=== PATIENT | female | born 1960 | race Caucasian/White ===

== ENCOUNTER → 2024-01-20 08:24 | Outpatient (REF) | payer BC, SELFPAY ==
[2024-01-20 09:50] LABS: % Basophils 1.1 % (0-2); % Eosinophils 3.1 % (0-6); % Immature Granulocytes 0.2 % (0-0.5); % Lymphocytes 37.3 % (20.5-51.1); % Monocytes 7.5 % (1.7-9.3); % Neutrophils 50.8 % (42.2-75.2); Absolute Basophils 0.1 10^3/uL (0-0.2); Absolute Eosinophils 0.1 10^3/uL (0-0.7); Absolute Lymphocytes 1.7 10^3/uL (1.2-3.4); Absolute Monocytes 0.3 10^3/uL (0.1-0.6); Absolute Neutrophils 2.3 10^3/uL (1.4-6.5); Hematocrit 39.4 % (37.0-47.0); Hemoglobin 13.4 g/dL (12.0-16.0); Mean Corpuscular Hgb 30.3 pg (27.0-31.0); Mean Corpuscular Volume 89.1 fL (81.0-99.0); Mean Platelet Volume 9.5 fL (7.4-10.4); Nucleated Red Blood Cells % 0 %; Platelet Count 220 10^3/uL (130-400); Red Blood Cell Count 4.42 10^6/uL (4.20-5.40); Red Cell Dist. Width 12.2 % (11.5-14.5); White Blood Cell Count 4.5 10^3/uL (4.8-10.8)
[2024-01-20 10:00] LABS: Urine Albumin Negative (Neg - Trace); Urine Bilirubin Negative (Negative); Urine Character Clear (Clear); Urine Color Yellow; Urine Glucose Negative (Negative); Urine Ketone Negative (Negative); Urine Leukocyte 2+ (Negative); Urine Nitrite Negative (Negative); Urine Occult Blood Negative (Negative); Urine Urobilinogen Negative (Neg - 1+)
[2024-01-20 10:13] LABS: ALT (SGPT) 30 U/L (0-35); AST (SGOT) 36 U/L (14-36); Albumin 4.3 g/dl (3.5-5.0); Alkaline Phosphatase 94 U/L (38-126); Blood Urea Nitrogen 18 mg/dl (7-17); C-Reactive Protein < 5.00 mg/L (0.0-10.00); Calcium 9.6 mg/dl (8.4-10.2); Carbon Dioxide 32 mmol/L (22-30); Chloride 103 mmol/L (98-107); Glucose 92 mg/dl (70-99); Potassium 4.5 mmol/L (3.5-5.1); Sodium 137 mmol/L (135-145); Total Bilirubin 0.5 mg/dl (0.2-1.3); Total Protein 7.1 g/dl (6.3-8.2); eGFR > 60.00
[2024-01-20 10:38] LABS: Erythrocyte Sed Rate 25 mm/hour (0-20)
[2024-01-20 10:43] LABS: TSH Reflex To Free T4 2.11 uIU/ml (0.47-4.68)
[2024-01-20 10:50] LABS: Urine Squamous Cell >30 /LPF (Few); Urine Urothelial Cell >30 /LPF (FEW)
[2024-01-20 10:52] LABS: Urine Amorphous Seen; Urine Bacteria Few (Negative); Urine Red Blood Cell 0-2 /HPF (0-2)
[2024-01-22 12:58] LABS: Lyme Antibody Screen, EIA Negative (Negative)
== END ==
LOC: REG 08:24
PROVIDERS: ATTENDING PHYSICIAN Student in an Organized Health Care Education/Training Program
DX: M54.6 Pain in thoracic spine (principal); M54.50 Low back pain, unspecified; R35.0 Frequency of micturition; R53.83 Other fatigue
CPT/HCPCS: 36415; 71046; 72072; 72110; 80053; 81003; 81015; 84443; 85025; 85652; 86140; 86618; 87086

== ENCOUNTER → 2024-02-05 09:39 | Outpatient (REF) | payer BC, SELFPAY ==
[2024-02-05 10:17] LABS: % Basophils 0.9 % (0-2); % Eosinophils 2.3 % (0-6); % Immature Granulocytes 0.4 % (0-0.5); % Monocytes 8.2 % (1.7-9.3); % Neutrophils 52.2 % (42.2-75.2); Absolute Basophils 0.1 10^3/uL (0-0.2); Absolute Eosinophils 0.1 10^3/uL (0-0.7); Absolute Monocytes 0.5 10^3/uL (0.1-0.6); Absolute Neutrophils 2.9 10^3/uL (1.4-6.5); Hematocrit 39.7 % (37.0-47.0); Hemoglobin 13.6 g/dL (12.0-16.0); Mean Corp Hgb Conc. 34.3 g/dL (33.0-37.0); Mean Corpuscular Hgb 30.4 pg (27.0-31.0); Mean Corpuscular Volume 88.6 fL (81.0-99.0); Mean Platelet Volume 9.4 fL (7.4-10.4); Nucleated Red Blood Cells % 0 %; Platelet Count 212 10^3/uL (130-400); Red Blood Cell Count 4.48 10^6/uL (4.20-5.40); Red Cell Dist. Width 11.9 % (11.5-14.5); White Blood Cell Count 5.6 10^3/uL (4.8-10.8)
[2024-02-05 10:18] LABS: Urine Albumin Negative (Neg - Trace); Urine Bilirubin Negative (Negative); Urine Character Clear (Clear); Urine Color Yellow; Urine Glucose Negative (Negative); Urine Ketone Negative (Negative); Urine Leukocyte Trace (Negative); Urine Nitrite Negative (Negative); Urine Occult Blood Negative (Negative); Urine Specific Gravity 1.015 (<1.030); Urine Urobilinogen Negative (Neg - 1+)
[2024-02-05 10:33] LABS: Erythrocyte Sed Rate 24 mm/hour (0-20)
[2024-02-05 11:09] LABS: Urine Amorphous Seen
[2024-02-05 11:12] LABS: Urine Red Blood Cell 0-2 /HPF (0-2)
== END ==
LOC: REG 09:39
PROVIDERS: ATTENDING PHYSICIAN Student in an Organized Health Care Education/Training Program
DX: R39.9 Unspecified symptoms and signs involving the genitourinary system (principal); R53.83 Other fatigue; M79.671 Pain in right foot; R79.89 Other specified abnormal findings of blood chemistry
CPT/HCPCS: 36415; 81003; 81015; 85025; 85652

== ENCOUNTER → 2024-02-14 16:58 | Outpatient (REF) | payer BC, SELFPAY | LOC: RCS 16:58 | PROVIDERS: ATTENDING PHYSICIAN Emergency Medicine | DX: R53.83 Other fatigue (principal); R06.09 Other forms of dyspnea | CPT/HCPCS: 93306 ==

== ENCOUNTER → 2024-02-17 09:06 | Outpatient (REF) | payer BC, SELFPAY ==
[2024-02-17 10:35] LABS: Urine Albumin Negative (Neg - Trace); Urine Bilirubin Negative (Negative); Urine Character Clear (Clear); Urine Color Yellow; Urine Glucose Negative (Negative); Urine Ketone Negative (Negative); Urine Leukocyte 1+ (Negative); Urine Nitrite Negative (Negative); Urine Occult Blood Negative (Negative); Urine Urobilinogen Negative (Neg - 1+)
[2024-02-17 10:42] LABS: Blood Urea Nitrogen 23 mg/dl (7-17); Calcium 9.7 mg/dl (8.4-10.2); Carbon Dioxide 27 mmol/L (22-30); Chloride 103 mmol/L (98-107); Glucose 102 mg/dl (70-99); Sodium 139 mmol/L (135-145); eGFR > 60.00
[2024-02-17 11:03] LABS: Vitamin D, 25-OH*** 35.4 ng/mL (30-80)
[2024-02-17 11:36] LABS: Vitamin B12 570 pg/ml (239-931)
[2024-02-17 12:00] LABS: Urine Bacteria Few (Negative); Urine Red Blood Cell None Seen /HPF (0-2)
[2024-02-17 14:13] LABS: Glycohemoglobin (HgbA1c) 5.7 % (4.0-5.6)
== END ==
LOC: REG 09:06
PROVIDERS: ATTENDING PHYSICIAN Student in an Organized Health Care Education/Training Program; FAMILY PHYSICIAN Emergency Medicine
DX: R53.83 Other fatigue (principal); R06.09 Other forms of dyspnea; R39.9 Unspecified symptoms and signs involving the genitourinary system
CPT/HCPCS: 36415; 80048; 81003; 81015; 82306; 82607; 83036; 87086

== ENCOUNTER → 2024-04-10 07:22 | Outpatient (REF) | payer BC, SELFPAY | LOC: RCS 07:22 | PROVIDERS: ATTENDING PHYSICIAN Internal Medicine Cardiovascular Disease; FAMILY PHYSICIAN Emergency Medicine | DX: R07.89 Other chest pain (principal) | CPT/HCPCS: 78452; 93017; A9500 ==

== ENCOUNTER → 2024-07-13 09:56 | Outpatient (REF) | payer BC, SELFPAY ==
[2024-07-13 10:55] LABS: Urine Albumin Negative (Neg - Trace); Urine Bilirubin Negative (Negative); Urine Character Clear (Clear); Urine Color Yellow; Urine Glucose Negative (Negative); Urine Ketone Negative (Negative); Urine Leukocyte 1+ (Negative); Urine Nitrite Negative (Negative); Urine Occult Blood Negative (Negative); Urine Specific Gravity 1.015 (<1.030); Urine Urobilinogen Negative (Neg - 1+)
[2024-07-13 11:33] LABS: Urine Red Blood Cell None Seen /HPF (0-2)
[2024-07-13 12:08] LABS: % Basophils 0.6 % (0-2); % Eosinophils 2.1 % (0-6); % Immature Granulocytes 0.2 % (0-0.5); % Lymphocytes 40.6 % (20.5-51.1); % Monocytes 7.1 % (1.7-9.3); % Neutrophils 49.4 % (42.2-75.2); Absolute Eosinophils 0.1 10^3/uL (0-0.7); Absolute Lymphocytes 1.9 10^3/uL (1.2-3.4); Absolute Monocytes 0.3 10^3/uL (0.1-0.6); Absolute Neutrophils 2.3 10^3/uL (1.4-6.5); Hematocrit 39.4 % (37.0-47.0); Hemoglobin 13.3 g/dL (12.0-16.0); Mean Corp Hgb Conc. 33.8 g/dL (33.0-37.0); Mean Corpuscular Hgb 29.7 pg (27.0-31.0); Mean Corpuscular Volume 87.9 fL (81.0-99.0); Mean Platelet Volume 9.6 fL (7.4-10.4); Nucleated Red Blood Cells % 0 %; Platelet Count 242 10^3/uL (130-400); Red Blood Cell Count 4.48 10^6/uL (4.20-5.40); Red Cell Dist. Width 11.9 % (11.5-14.5); White Blood Cell Count 4.7 10^3/uL (4.8-10.8)
[2024-07-13 12:12] LABS: ALT (SGPT) 22 U/L (0-35); AST (SGOT) 28 U/L (14-36); Albumin 4.2 g/dl (3.5-5.0); Alkaline Phosphatase 86 U/L (38-126); Blood Urea Nitrogen 19 mg/dl (7-17); Calcium 9.6 mg/dl (8.4-10.2); Carbon Dioxide 32 mmol/L (22-30); Chloride 102 mmol/L (98-107); Glucose 91 mg/dl (70-99); HDL Cholesterol 64 mg/dl; LDL Cholesterol, Calculated 82 mg/dl; Potassium 4.6 mmol/L (3.5-5.1); Sodium 145 mmol/L (135-145); Total Bilirubin 0.2 mg/dl (0.2-1.3); Total Cholesterol 172 mg/dl (50-199); Total Protein 6.9 g/dl (6.3-8.2); Triglyceride 130 mg/dl (10-149); Very Low Density Lipoprotein 26 mg/dl (0-30); eGFR > 60.00
[2024-07-13 12:27] LABS: Vitamin D, 25-OH*** 40.2 ng/mL (30-80)
[2024-07-13 12:41] LABS: TSH Reflex To Free T4 1.91 uIU/ml (0.47-4.68)
[2024-07-13 13:13] LABS: Glycohemoglobin (HgbA1c) 5.5 % (4.0-5.6)
== END ==
LOC: REG 09:56
PROVIDERS: ATTENDING PHYSICIAN Emergency Medicine
DX: Z00.00 Encounter for general adult medical examination without abnormal findings (principal); M85.80 Other specified disorders of bone density and structure, unspecified site; I10 Essential (primary) hypertension; E66.9 Obesity, unspecified; R73.03 Prediabetes; E78.2 Mixed hyperlipidemia
CPT/HCPCS: 36415; 80053; 80061; 81003; 81015; 82306; 83036; 84443; 85025

== ENCOUNTER 2025-01-20 17:28 | Emergency (ER) | payer BC, SELFPAY ==
[2025-01-20 17:39] VITALS: BP 147/70
[2025-01-20 18:25] LABS: Hematocrit 39.1 % (37.0-47.0); Hemoglobin 13.5 g/dL (12.0-16.0); Mean Corp Hgb Conc. 34.5 g/dL (33.0-37.0); Mean Corpuscular Hgb 29.9 pg (27.0-31.0); Mean Corpuscular Volume 86.7 fL (81.0-99.0); Mean Platelet Volume 9.3 fL (7.4-10.4); Platelet Count 209 10^3/uL (130-400); Red Blood Cell Count 4.51 10^6/uL (4.20-5.40); Red Cell Dist. Width 11.9 % (11.5-14.5); White Blood Cell Count 5.6 10^3/uL (4.8-10.8)
[2025-01-20 18:26] LABS: ALT (SGPT) 31 U/L (0-35); AST (SGOT) 45 U/L (14-36); Albumin 4.4 g/dl (3.5-5.0); Alkaline Phosphatase 85 U/L (38-126); Blood Urea Nitrogen 33 mg/dl (7-17); Calcium 9.6 mg/dl (8.4-10.2); Carbon Dioxide 27 mmol/L (22-30); Chloride 98 mmol/L (98-107); Glucose 144 mg/dl (70-99); Potassium 3.6 mmol/L (3.5-5.1); Sodium 137 mmol/L (135-145); Total Bilirubin 0.9 mg/dl (0.2-1.3); Total Protein 7.1 g/dl (6.3-8.2); eGFR 41.49
[2025-01-20 19:35] LABS: Absolute Neutrophils -Man Diff 2.9 10^3/uL (1.4-6.5); Atypical Lymphocytes 7 %; Band Neutrophils 4 % (0-3); Lymphocytes 26 % (20-51); Monocytes 13 % (2-9); Segmented Neutrophils 49 % (42-75)
[2025-01-20 19:36] LABS: Normal RBC Morphology Yes; Platelets Checked Yes; Total Cells Counted 100
[2025-01-20 21:03] VITALS: BP 159/71
--- NOTE | 2025-01-20 21:09 | ED.GENMED ---
History of Present Illness
General
Chief Complaint: Abdominal Symptoms
Source: patient
Exam Limitations: none
Time Seen by Provider: 01/20/25 20:43
Nursing documentation reviewed up to this point in time: agreed with
History of Present Illness
History of Present Illness:
64-year-old female recently traveled to [facility], ate some seafood as did her family she developed fever chills abdominal cramping vomiting and then diarrhea fairly profuse, she has had decreased p.o. intake at home for a day or 2 diarrhea x 8
today, no blood in her vomit or diarrhea,
Past History
Past History
ED Past Medical History: HTN and Other (Migraine )
ED Past Surgical History: Appendectomy
Social History
Tobacco: Non-smoker
Alcohol: None
Drug: None
Personal:
Living: with family
Employment: Employed
Review of Systems
Review of Systems
All Other Systems: Not applicable
Constitutional: Reports fever, weight loss, fatigue and chills
EENT: Reports no symptoms
Respiratory: Reports no symptoms
Cardiac: Reports no symptoms
ABD/GI: Reports abdominal pain, nausea, vomiting and diarrhea
: Reports no symptoms
Musculoskeletal: Reports muscle pain and muscle stiffness
Skin: Reports no symptoms
Neurological: Reports weakness
Hematologic/Lymphatic: Reports no symptoms
Phy Exam
Physical Exam
Physical Exam:
Physical Exam
General: Nontoxic 64-year-old
Neck: Dry lips
Heart: s1/s2 regular rate and rhythm, no murmur. equal radial pulses.
Lungs: no acute respiratory distress. clear bilaterally
Abdomen: Mild diffuse tenderness no localized guarding or rebound
Neuro: alert and oriented. no focal neurological deficits
Skin: no rash
Psychiatric: well kept. interactive and cooperative
Extremities: no edema.
Course
Orders/Labs/Results
Orders:
Orders
01/20/25 17:46
Complete Blood Count/With Diff Urgent
Comprehensive Metabolic Panel Urgent
Creatine Phosphokinase Urgent
Comment: ADD ON
Manual Differential Urgent
01/20/25 20:43
STOOL [C difficile Antigen & Toxins] Urgent
SARAH Source: Feces/Stool
Specimen Description:
Stool Culture Urgent
SARAH Source: Feces/Stool
Specimen Description:
01/20/25 20:53
0.9% Sodium Chloride 1000 ml [Nss] 1,000 ml IV BOLUS
01/20/25 21:05
Norovirus by PCR Urgent
SARAH Source: Feces/Stool
Specimen Description:
Ondansetron Injectable [Zofran] 4 mg IV NOW STA
01/20/25 21:06
Acetaminophen 1000MG/100Ml [Ofirmev] 1,000 mg in 100 ml IV ONCE
Acetaminophen IV Indication:: Ileus/Delayed Bowel Func.
01/20/25 21:15
Add On- LAB Urgent
Tests Added?: CPK
01/20/25 22:21
LevoFLOXacin [Levaquin] 250 mg PO NOW STA
Abnormal Lab Results
01/20/25
17:46
Band Neutrophils 4 H %
(0-3)
Monocytes (Manual) 13 H %
(2-9)
BUN 33 H mg/dl
(7-17)
Creatinine 1.4 H mg/dL
(0.6-1.0)
Glucose 144 H mg/dl
(70-99)
AST 45 H U/L
(14-36)
Creatine Kinase 210 H U/L
(30-135)
01/20/25 17:46
01/20/25 17:46
Vital Signs
Initial and Last Documented VS:
Initial Vital Signs
Temp Pulse Resp BP Pulse Ox
97.9 F 83 16 147/70 96
01/20/25 17:39 01/20/25 17:39 01/20/25 17:39 01/20/25 17:39 01/20/25 17:39
Last Documented Vital Signs
Temp Pulse Resp BP Pulse Ox
97.9 F 87 16 159/71 97
01/20/25 17:39 01/20/25 21:03 01/20/25 17:39 01/20/25 21:03 01/20/25 21:45
MDM/Problems Addressed
Differential Diagnosis Includes:
Norovirus infectious diarrhea doubt C. difficile as she has not been on antibiotics
MDM/Problems Addressed:
Fever nausea vomiting diarrhea
Chronic conditions affecting care: HTN
*Critical Care Note
Total Time (30-74mins, 75-104mins- exclusive of procedures): Not Applicable
Update Note
Update Note:
Update after about 500 cc of saline patient feeling a bit better tells that she would like to go home as opposed to being admitted, left the full bag going has without a produce stool sample, will treat empirically for traveler's diarrhea/colitis
ED Attending Note
-
Portions of this chart may have been created with voice recognition software.� Occasional wrong word or��sound alike� substitutions may have occurred due to the inherent limitations of voice recognition software.
Discharge Plan
Departure
Patient Disposition: Home (Routine Discharge)
Date of Disposition: 01/20/25
Time of Disposition: 22:23
Patient with high blood pressure during this ER visit?: No
Condition: Good
Discharge Problem:
Acute infectious diarrhea
Instructions: Clear Liquid Diet, Nausea and Vomiting, Adult (DC), Diarrhea in adults - ED discharge instructions
Prescriptions:
New
levofloxacin 250 mg tablet
250 mg PO DAILY 3 Days Qty: 3 0RF
dicyclomine 20 mg tablet
20 mg PO QID PRN (Reason: abdominal cramps) Qty: 10 0RF
No Action
Advil
2 tab PO Q4H PRN (Reason: PAIN)
Referrals:
Romero Salas DO [Family Provider] -
Interventions
Interventions:
*Risk Screen - Suicide Last Done: 01/20/25 17:41
*General Assessment Last Done: 01/20/25 20:58
*Neglect/Abuse Screening Last Done: 01/20/25 17:41
*ED- Fall Risk Assessment Last Done: 01/20/25 20:58
*ED COVID-19 Vaccine History Last Done: 01/20/25 20:58
DF-Lrmths-Cztwvorcqe Assessment Last Done: 01/20/25 21:13
Discharge Date and Time
Print Language: HONDURAN
[2025-01-20] MEDS: NSS 1000 IV (21:26)
[2025-01-20] MEDS: OFIRMEV 100 IV (21:26)
[2025-01-20] MEDS: ZOFRAN 4 MG IV (21:27)
[2025-01-20 21:55] LABS: Creatine Phosphokinase 210 U/L (30-135)
[2025-01-20] MEDS: LEVAQUIN 250 MG PO (23:41)
[2025-01-20 23:57] VITALS: BP 130/68
== END 2025-01-21 00:17 | disposition home or self-care (01) ==
LOC: EMR 17:28
PROVIDERS: Emergency Medicine; EMERGENCY PHYSICIAN Emergency Medicine; FAMILY PHYSICIAN Family Medicine
DX: A09 Infectious gastroenteritis and colitis, unspecified (principal); I10 Essential (primary) hypertension; Z90.49 Acquired absence of other specified parts of digestive tract
CPT/HCPCS: 96374; 96361; 99284; 80053; 82550; 85025

== ENCOUNTER → 2025-04-02 07:52 | Outpatient (REF) | payer BC, SELFPAY ==
[2025-04-02 08:44] LABS: Hematocrit 37.8 % (37.0-47.0); Hemoglobin 12.8 g/dL (12.0-16.0); Mean Corp Hgb Conc. 33.9 g/dL (33.0-37.0); Mean Corpuscular Volume 89.2 fL (81.0-99.0); Nucleated Red Blood Cells % 0 %; Platelet Count 210 10^3/uL (130-400); Red Cell Dist. Width 12.4 % (11.5-14.5)
[2025-04-02 09:14] LABS: C-Reactive Protein < 5.00 mg/L (0.0-10.00)
[2025-04-02 09:16] LABS: ALT (SGPT) 19 U/L (0-35); AST (SGOT) 25 U/L (14-36); Albumin 4.3 g/dl (3.5-5.0); Alkaline Phosphatase 87 U/L (38-126); Blood Urea Nitrogen 18 mg/dl (7-17); Calcium 9.4 mg/dl (8.4-10.2); Carbon Dioxide 30 mmol/L (22-30); Chloride 105 mmol/L (98-107); Glucose 95 mg/dl (70-99); Potassium 4.2 mmol/L (3.5-5.1); Sodium 140 mmol/L (135-145); Total Protein 6.9 g/dl (6.3-8.2); eGFR > 60.00
[2025-04-03 20:13] LABS: Hepatitis C Antibody Negative (Negative)
[2025-04-04 01:24] LABS: EBV-EA (D) Ab IgG 12.0 U/mL (0.0-10.9); EBV-NA IgG 515.0 U/mL (0.0-21.9); EBV-VCA IgG Antibodies >750.0 U/mL (0.0-21.9); EBV-VCA IgM Antibodies 15.9 U/mL (0.0-43.9)
== END ==
LOC: REG 07:52
PROVIDERS: ATTENDING PHYSICIAN Nurse Practitioner Family
DX: R69 Illness, unspecified (principal)
CPT/HCPCS: 36415; 80053; 85025; 85652; 86140; 86663; 86664; 86665; 86704; 86706; 86803; 87350; 87389

== ENCOUNTER → 2025-08-22 07:12 | Outpatient (REF) | payer BC, SELFPAY ==
[2025-08-22 08:01] LABS: Hematocrit 40.9 % (37.0-47.0); Hemoglobin 13.9 g/dL (12.0-16.0); Mean Corp Hgb Conc. 34.0 g/dL (33.0-37.0); Mean Corpuscular Volume 89.5 fL (81.0-99.0); Nucleated Red Blood Cells % 0 %; Platelet Count 208 10^3/uL (130-400); Red Cell Dist. Width 11.9 % (11.5-14.5)
[2025-08-22 08:07] LABS: Urine Character Clear (Clear)
[2025-08-22 08:52] LABS: ALT (SGPT) 29 U/L (0-35); AST (SGOT) 31 U/L (14-36); Albumin 4.4 g/dl (3.5-5.0); Alkaline Phosphatase 87 U/L (38-126); Blood Urea Nitrogen 18 mg/dl (7-17); Calcium 9.7 mg/dl (8.4-10.2); Carbon Dioxide 29 mmol/L (22-30); Chloride 102 mmol/L (98-107); Glucose 100 mg/dl (70-99); HDL Cholesterol 63 mg/dl; LDL Cholesterol, Calculated 82 mg/dl; Potassium 4.0 mmol/L (3.5-5.1); Sodium 137 mmol/L (135-145); Total Protein 7.4 g/dl (6.3-8.2); Very Low Density Lipoprotein 25 mg/dl (0-30); eGFR > 60.00
[2025-08-22 08:59] LABS: Vitamin D, 25-OH*** 38.5 ng/mL (30-80)
[2025-08-22 09:13] LABS: TSH 2.33 uIU/ml (0.47-4.68)
[2025-08-22 10:02] LABS: Glycohemoglobin (HgbA1c) 5.6 % (4.0-5.9)
[2025-08-22 18:49] LABS: Microalb - Urine Creatinine 187.000 mg/dl
[2025-08-22 18:52] LABS: Microalbumin, Random Urine 5.6 mg/dl (0.6-1.7)
== END ==
LOC: REG 07:12
PROVIDERS: ATTENDING PHYSICIAN Family Medicine
DX: Z00.00 Encounter for general adult medical examination without abnormal findings (principal); R73.03 Prediabetes; E78.2 Mixed hyperlipidemia
CPT/HCPCS: 36415; 80053; 80061; 81003; 81015; 82043; 82306; 82570; 83036; 84443; 85025

== ENCOUNTER → 2025-09-11 11:52 | Outpatient (REF) | payer BC, SELFPAY ==
[2025-09-11 17:43] LABS: Urine Character Slightly Cloudy (Clear)
[2025-09-11 17:51] LABS: Urine Squamous Cell 26-30 /LPF (Few)
[2025-09-11 17:52] LABS: Urine Red Blood Cell 0-2 /HPF (0-2)
== END ==
LOC: CLAB 11:52
PROVIDERS: ATTENDING PHYSICIAN Family Medicine
DX: R30.0 Dysuria (principal)
CPT/HCPCS: 81003; 81015; 87086

== ENCOUNTER → 2025-09-12 14:26 | Outpatient (REF) | payer BC, SELFPAY | LOC: RAD 14:26 | PROVIDERS: ATTENDING PHYSICIAN Family Medicine | DX: N39.0 Urinary tract infection, site not specified (principal); R10.A2 Flank pain, left side | CPT/HCPCS: 74018 ==

== ENCOUNTER → 2025-09-17 07:57 | Outpatient (REF) | payer BC, SELFPAY | LOC: RAD 07:57 | PROVIDERS: ATTENDING PHYSICIAN Family Medicine | DX: N39.0 Urinary tract infection, site not specified (principal); R10.A2 Flank pain, left side | CPT/HCPCS: 76770 ==

== ENCOUNTER → 2025-09-23 09:40 | Outpatient (REF) | payer BC, SELFPAY | LOC: RAD 09:40 | PROVIDERS: ATTENDING PHYSICIAN Family Medicine | DX: N20.0 Calculus of kidney (principal); R10.A2 Flank pain, left side | CPT/HCPCS: 74176 ==

== ENCOUNTER → 2025-09-26 15:20 | Outpatient (REF) | payer BC, SELFPAY | LOC: RAD 15:20 | PROVIDERS: ATTENDING PHYSICIAN Family Medicine | DX: R10.A3 Flank pain, bilateral (principal) | CPT/HCPCS: 74177; Q9967 ==